=== PATIENT | female | born 2000 | race African-American/Black ===

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

== ENCOUNTER 2020-10-30 11:05 | Emergency (ER) | payer OTHER, SELFPAY ==
[2020-10-30 22:36] LABS: SARS-CoV-2 PCR by NAA Not Detected (NotDetected)
== END 2020-10-30 12:05 | disposition home or self-care (01) ==
LOC: ERS 11:05
DX: J06.9 Acute upper respiratory infection, unspecified (principal); R05 Cough; Z20.822 Contact with and (suspected) exposure to COVID-19
CPT/HCPCS: 71046; 87635; U0003; U0005